=== PATIENT | female | born 1930 | race Caucasian/White ===

== ENCOUNTER 2018-09-16 08:01 | Emergency (ER) | payer MEDICAID, MEDICARE ==
[~2018-09-16] VITALS: Ht 162.6 cm; Wt 54.5 kg
[~2018-09-16 08:01] MED LIST: DEXT1DRO6; DONE5TAB46; FEXO-10; FLUT1DIS22; LEVO25TA; LEVO50TA89; LORA-441; MAGN311T3; MAGN400O19; MULTIVITAMIN; OLAN15TA3; OSCAL; RTPRO5; TIOT18CA; TYLENOL; ZAFI20TA5
[2018-09-16 08:24] VITALS: Ht 162.6 cm; Wt 54.5 kg
[2018-09-16] MEDS ORDERED: ZAFI20TA13 PO (10:59)
[2018-09-16] MEDS ORDERED: DONE10TA7 PO (10:59)
[2018-09-16] MEDS ORDERED: DIPHTH/TET/ACEL PERTUSS (ADULT) 0.5 ML VIAL IM* ONE (11:00)
[2018-09-16] MEDS ORDERED: MINE3.5O30 BOTH EYES (11:01)
[2018-09-16] MEDS ORDERED: LORA0.5T PO (11:02)
[2018-09-16] MEDS ORDERED: IPRA3AMP29 INHALATION (11:04)
[2018-09-16] MEDS ORDERED: FLUT1AER INHALATION (11:05)
[2018-09-16] MEDS ORDERED: CALC-207 PO (11:05)
[2018-09-16] MEDS ORDERED: CITA20TA11 PO (11:06)
[2018-09-16] MEDS ORDERED: FER325 PO (11:06)
[2018-09-16] MEDS ORDERED: NA P230E RC (11:08)
[2018-09-16] MEDS ORDERED: FOLI0.4T2 PO (11:09)
[2018-09-16] MEDS ORDERED: MAGN400O19 PO (11:11)
[2018-09-16] MEDS ORDERED: MULT-105 PO (11:12)
[2018-09-16] MEDS ORDERED: TIOT18CA INHALATION (11:13)
[2018-09-16] MEDS ORDERED: LEVO50TA89 PO (11:14)
[2018-09-16] MEDS ORDERED: ACET325T33 PO (11:16)
[2018-09-16] MEDS ORDERED: ALBU90AE INHALATION (11:17)
[2018-09-16] MEDS ORDERED: OLAN2.5T28 PO (11:19)
[2018-09-16] MEDS ORDERED: OLAN10TA7 PO (11:19)
--- NOTE | 2018-09-16 12:09 | ERD ---
ER Documentation Chief Complaint Chief Complaint care center for a fall out of bed, small lac on right temporal forehead HPI This is an 87-year-old female with a past medical history of hypertension, asthma/COPD, dementia, depression, psychosis, hypothyroidism who is presenting with a right temporal/forehead skin tear, sustained after a fall out of bed. No loss of consciousness reported. No syncope reported. No other evidence of trauma. The patient has no complaints currently aside from chronic shortness of breath. She is requesting a breathing treatment. History and physical is limited secondary to dementia. ROS All systems reviewed and are negative except as per history of present illness. Medications Home Meds Reported Medications Olanzapine* (Zyprexa*) 10 Mg Tablet, 10 MG PO DAILY, #30 TAB 09/16/18 Olanzapine* (Zyprexa*) 2.5 Mg Tablet, 2.5 MG PO DAILY, #30 TAB 09/16/18 Albuterol Sulfate (Proair Respiclick) 90 Mcg Aer.pow.ba, 2 PUFFS INHALATION Q6 PRN for SHORTNESS OF BREATH, #1 BOTTLE 09/16/18 Acetaminophen* (Tylenol*) 325 Mg Tablet, 650 MG PO Q6H PRN for MILD PAIN LEVEL 1-3, TAB AND FEVER>100F 09/16/18 Levothyroxine Sodium* (Synthroid*) 50 Mcg Tablet, 50 MCG PO BEFORE BREAKFAST, #30 TAB 09/16/18 Tiotropium [place]* (Spiriva*) 18 Mcg Cap.w.dev, 1 CAP INHALATION DAILY, #30 CAP 09/16/18 Multivitamin with Minerals (Multivitamins with Minerals) 1 Each Tablet, 1 EACH PO DAILY, TAB 09/16/18 Magnesium Hydroxide* (Milk Of Magnesia*) 400 Mg/5 Ml Oral.susp, 30 ML PO QHS, ML 09/16/18 Folic Acid* (Folic Acid*) 0.4 Mg Tablet, 0.4 MG PO DAILY, TAB 09/16/18 Na Phos,M-B/Na Phos,Di-Ba (Fleet Enema Extra) 230 Ml Enema, 1 UNIT RC Q2D, ENEMA 09/16/18 Ferrous Sulfate* (Ferrous Sulfate*) 325 Mg Tabec, 325 MG PO DAILY, TAB 09/16/18 Citalopram Hydrobromide* (Celexa*) 20 Mg Tablet, 20 MG PO BID, #30 TAB 09/16/18 Calcium Carbonate/Vitamin D3 (Calcium 500 + Vit D 200 Tablet) 1 Each Tablet, 1 EACH PO BID, TAB 09/16/18 Fluticasone-Vilanterol (Breo Ellipta Inhaler) 100-25 Mcg/Actuation Aer.pow.ba, 1 PUFF INHALATION DAILY, #1 INHALER 09/16/18 Ipratropium-Albuterol (Ipratropium-Albuterol) 0.5-3 Mg/3 Ml Ampul.neb, 2.5 ML INHALATION Q4H, #30 VIAL 09/16/18 Lorazepam* (Lorazepam*) 0.5 Mg Tablet, 0.5 MG PO Q6 PRN for ANXIETY, TAB 09/16/18 Mineral Oil/Petrolatum,White (ARTIFICIAL TEARS EYE OINT) 3.5 Gm Oint...g., 1 APPLIC BOTH EYES BID, #1 TUB 09/16/18 Donepezil* (Aricept*) 10 Mg Tablet, 10 MG PO QHS, TAB 09/16/18 Zafirlukast* (Accolate*) 20 Mg Tab, 20 MG PO BID, #60 TAB 09/16/18 Discontinued Reported Medications Lorazepam* (Ativan*) 0.5 Mg Tablet 07/07/10 Olanzapine* (Zyprexa*) 15 Mg Tablet 07/07/10 Magnesium Hydroxide* (Milk Of Magnesia*) 400 Mg/5 Ml Oral.susp 07/07/10 Dextran 70/Hypromellose (Artificial Tears) 1 Drp Droperette 07/07/10 Levothyroxine Sodium* (Synthroid*) 50 Mcg Tablet 07/07/10 Tylenol 04/17/10 Magnesium Hydroxide (Milk Of Magnesia) 311 Mg Tab.chew 04/17/10 [Oscal] No Conflict Check 04/17/10 Fexofenadine Hcl (Arianna) 60 Mg Tablet 04/17/10 Multivitamin 04/17/10 Levothyroxine Sodium* (Synthroid*) 25 Mcg Tablet 04/17/10 Zafirlukast* (Accolate*) 20 Mg Tablet 04/17/10 Albuterol Sulfate* (Proventil* Neb) 0.5 Ml Nebu 04/17/10 Tiotropium [place]* (Spiriva*) 18 Mcg Cap.w.dev 04/17/10 Donepezil* (Aricept*) 5 Mg Tablet 04/17/10 Fluticasone/Salmeterol (Advair 100-50 Diskus) 1 Disk W/Dev Disk.w.dev 04/17/10 Allergies Allergies: Coded Allergies: No Known Drug Allergy (Verified Allergy, Mild, 09/16/18) PMhx/Soc History of Surgery: No Anesthesia Reaction: No Hx Neurological Disorder: Yes (memory impairment) Hx Respiratory Disorders: Yes (asthma, copd) Hx Cardiac Disorders: Yes (htn) Hx Psychiatric Problems: Yes (depression, psychosis) Hx Miscellaneous Medical Probl: No Hx Alcohol Use: No Hx Substance Use: No Hx Tobacco Use: No Smoking Status: Never smoker FmHx Family History: No diabetes Physical Exam Vitals Vital Signs Date Temp Pulse Resp B/P (MAP) Pulse Ox O2 O2 Flow FiO2 Time Delivery Rate 09/16/18 84 17 160/100 98 Room Air 11:28 (120) 09/16/18 75 18 115/63 98 Nasal 10:23 (80) Cannula 09/16/18 98.6 72 24 115/55 97 08:24 (75) Physical Exam Const: No apparent distress, well-developed, well-nourished Head: Normocephalic. Skin tear to the right forehead. No parra sign. Eyes: Normal Conjunctiva. Extraocular movements intact. Pupils equal, round and reactive to light. No raccoon eyes. ENT: Normal External Ears, Nose and Mouth. No hemotympanum. Neck: Full range of motion. No meningismus. No midline cervical spine tenderness. Resp: Clear to auscultation bilaterally, No wheezes, rales or rhonchi Cardio: Regular rate and rhythm. No murmurs, rubs or gallops Abd: Soft, non tender, non distended. Normal bowel sounds Skin: No petechiae or rashes Back: No midline tenderness. No CVA tenderness Ext: No cyanosis, or edema Neur: Awake and alert, oriented 1-2. Cranial nerves intact. No facial droop. Normal strength, sensation and coordination. Psych: Normal Mood and Affect Results 24 hrs Current Medications Medications Dose Sig/Pita Start Time Status Last (Trade) Ordered Route PRN Stop Time Admin Dose Reason Admin Diphtheria/ 0.5 ml ONCE ONCE 09/16/18 DC 09/16/18 Tetanus/Acell IM* 11:00 09/16/18 11:24 Pertussis 11:01 (Adacel) Albuterol 5 mg ONCE STAT 09/16/18 DC (Proventil HHN 13:15 09/16/18 0.083% (Neb)) 13:16 Procedures/MDM MDM The patient's presentation warrants further investigation. Previous medical records, if available, were reviewed. IMAGING Imaging and Radiology interpretation reviewed. CT Head FINDINGS: CALVARIUM: Regional bones are intact. SINUSES: Paranasal sinuses and mastoid air cells are clear. ORBITS: Previous lens extractions, right scleral banding and hyperdense appearance of the globe consistent with silicone injection. BRAIN: There is generalized cerebral volume loss and patchy diminished attenuation throughout the cerebral white matter consistent with chronic small vessel ischemic changes. Calcified carotid siphons. No intracranial mass or evidence of hemorrhage. There is no evidence of an acute or subacute territorial infarction. Ventricular prominence is in keeping with degree of sulcal and fissural widening. IMPRESSION: 1. Negative for intracranial hemorrhage or other acute process. 2. Generalized volume loss, atherosclerosis, advanced chronic small vessel ischemic changes. Electronically viewed and signed by Physician Stephie on 09/16/2018 09:50 CT C-spine FINDINGS: There is no evidence of acute fracture. There are no destructive bone lesions. The dens is intact. Facet joints are appropriately aligned. There is slight degenerative anterolisthesis at C2-3 and C3-4 and minimal retrolisthesis at C4-5, moderate-advanced degenerative facet changes at these levels. There is also mild anterolisthesis at C7-T1 with advanced facet degeneration also noted at this level. Mild disc degeneration at C2-3 and moderate - advanced disc degeneration from C3-4 through C7-T1. Prevertebral soft tissues are unremarkable. Imaged lung apices are clear. Atherosclerotic calcifications noted at the carotid bifurcations. C2-3: Degenerative facet overgrowth and mild right foraminal stenosis. C3-4: Uncovertebral ridging and facet overgrowth produce moderate left foraminal stenosis. C4-5: Uncovertebral ridging and facet overgrowth produce mild central canal stenosis and mild left foraminal stenosis. C5-6: Disc osteophyte ridging produces mild central canal stenosis, mild left and moderate right foraminal stenosis. C6-7: Disc osteophyte ridging produces mild bilateral foraminal stenosis. C7-T1: No significant central canal stenosis or foraminal narrowing. IMPRESSION: 1. Negative for fracture. 2. Mild degenerative anterolisthesis at C2-3 and C3-4, slight retrolisthesis at C4-5 and mild anterolisthesis at C7-T1. These findings are presumably degenerative and secondary to advanced underlying facet arthropathy. 3. Multilevel disc and facet degeneration from C2-3 through C7-T1. Mild central canal stenosis at C5-6 and C6-7. Varying degrees of bilateral foraminal narrowing as detailed above. 4. Carotid atherosclerosis. Electronically viewed and signed by Physician Stephie on 09/16/2018 09:58 TREATMENT/DISPOSITION The patient presents after a trauma. The patient was evaluated fully without evidence of emergent posttraumatic pathology. The patient's CT imaging of the head and cervical spine are unremarkable. The patient has no focal deficits. I've low suspicion for intracranial pathology. I have low suspicion for cerebral ischemia or intracranial hemorrhage. The patient has no cervical spine tenderness. He can move his neck in all directions without any pain. As stated above, he does not have any focal deficits. He is not intoxicated. She is alert and at baseline. He does not have any distracting injuries. The patient's cervical spine was cleared. The patient does not have any saddle anesthesia. He has not been incontinent of urine or stool. He has not had any retention of urine or stool. I have low suspicion for spinal cord injury. There is no evidence of cardiothoracic or abdominal injury. I have low suspicion for extremity injury. There is no evidence of any penetrating injuries. The patient's lungs are clear,, but she endorses chronic shortness of breath related to asthma and requested a breathing treatment. This was provided. PROCEDURE Laceration Repair Performer: Performed by me. Anesthesia: Not needed Location: Right forehead Tendon/Joint/Nerves: No injury Foreign body: None detected after copious irrigation and exploration Technique: Steri-Strips Complexity: No subcutaneous sutures/mucosal repair/edge excision Post Closure Length: 5 cm Patient's bleeding was easily controlled in the department. No evidence of anemia, compartment syndrome, neurologic injury, vascular injury, open joint, tendon laceration, or foreign body. Patient is appropriate for outpatient follow up. 48 hour wound check recommended. Scar minimization instructions given. DISCHARGE Upon reevaluation of the patient, symptoms have improved. No emergent diagnoses were identified. At this time, I feel that the patient stable for discharge. The patient was instructed to follow-up with a primary care physician in 1-3 days. The patient will be given strict precautions with which to return to the emergency department. Prescriptions: None The patient's blood pressure was elevated at greater than 120/80 while in the emergency department. The patient was otherwise stable with no evidence of hypertensive urgency or emergency. The patient does not require admission for blood pressure control. I have discussed with the patient the risks of hypertension. I have instructed the patient to return to the ER for any new or worsening symptoms including chest pain, shortness of breath, headache, blurred vision, confusion, nausea, vomiting or LOC. I have advised the patient to follow up with the primary care physician for outpatient monitoring and treatment for hypertension in 1-3 days. Disclaimer: Inadvertent spelling and grammatical errors are likely due to EHR/dictation software use and do not reflect on the overall quality of patient care. Note that the electronic time recorded on this note does not necessarily reflect the actual time of the patient encounter. Departure Diagnosis: Primary Impression: Skin tear Additional Impressions: Fall Encounter type: initial encounter Qualified Codes: W19.XXXA - Unspecified fall, initial encounter Chronic asthma not affecting current episode of care Condition: ROSA Uriarte MD Sep 16, 2018 12:08
[2018-09-16] MEDS ORDERED: ALBUTEROL 0.083% (NEB) 2.5 MG/3 ML AMP HHN STA (13:15)
[2018-09-16 13:30] VITALS: BP 110/73
[2018-09-16 16:08] VITALS: PULSE 96; RESP 17
== END 2018-09-16 16:13 | disposition home or self-care (01) ==
LOC: E/R 08:01
DX: S01.81XA Laceration without foreign body of other part of head, initial encounter (principal); I10 Essential (primary) hypertension; E03.9 Hypothyroidism, unspecified; J44.9 Chronic obstructive pulmonary disease, unspecified; W06.XXXA Fall from bed, initial encounter; Y92.9 Unspecified place or not applicable; Z23 Encounter for immunization
CPT/HCPCS: 70450; 72125; 90471; 90715; 94664